=== PATIENT | female | born 1995 | race Caucasian/White ===

== ENCOUNTER 2025-02-13 16:23 | Inpatient (IN) ==
[2025-02-13] MEDS: OXYTOCIN 10 UNITS/ML VIAL ONE (16:36)
[2025-02-13] MEDS: OXYTOCIN 30 UNITS/NSS 30 UNITS/500 ML BAG IV PRN (16:45)
[2025-02-13] MEDS ORDERED: LACTATED RINGER'S 1,000 ML IV PRN (17:00)
[2025-02-13] MEDS ORDERED: LIDOCAINE 1% LOCAL 20 ML VIAL INFIL PRN (17:00)
[2025-02-13] MEDS ORDERED: OXYTOCIN 30 UNITS/NSS 30 UNITS/500 ML BAG IV PRN (17:00)
--- NOTE | 2025-02-13 17:00 | Delivery Summary ---
Vaginal Delivery Summary Date of Service February 13, 2025 Vaginal Delivery Summary and 3rd Degree LAC (partial) The patient dilated to complete and pushed to deliver a viable female Apgars 8 and 9 via over partial 3rd degree perineal laceration. Mouth and nose bulb suctioned at perineum. Body cord noted. Shoulders and body delivered with ease. Infant was vigorous and crying at . Cord clamped at 60+ seconds of life after no pulsations and to maternal abdomen where the cord was then doubly clamped and cut. Placenta delivered spontaneously and intact, three-vessel cord. Hemostasis not achieved with dilute pitocin--which wasn't infusing due to lost iv site, therefore IM pit given and uterine massage and bimanual massage given. With continued gushes 1000mcg of rectal cytotec given. Hemostasis improving and iv site obtained for dilute pitocin. Left sulcal laceration noted and right vulvar hematoma that was not expanding noted. After 1% local lidocaine anesthesia, 3-0 and 2-0 vicryl used to perform repairs. The perineum was reapproximated in layers after the anal sphincter was reinforced with 2-0 vicryl. Cervix intact. QBL 520 cc. Mother and baby stable in recovery. [facility] Vaginal Delivery Charge Delivery Type Details: and 3rd Degree LAC (partial)
[2025-02-13] MEDS ORDERED: MEASLES, MUMPS & RUBELLA VIRUS VACCINE (MMR) 0.5ML VIAL SQ ONE (17:20)
[2025-02-13] MEDS ORDERED: ACETAMINOPHEN 325 MG TAB PO PRN (17:20)
[2025-02-13] MEDS ORDERED: DIPHTHER/TETAN/PERTUS Vaccine (Tdap, Adol/Adult) 0.5mL IM ONE (17:20)
[2025-02-13] MEDS ORDERED: HYDROCORTISONE ACETATE 25 MG SUPP PR PRN (17:20)
[2025-02-13] MEDS: LIDOCAINE 1% LOCAL 20 ML VIAL ONE (17:37)
[2025-02-13] MEDS: IBUPROFEN 600 MG TAB PO PRN (18:01)
[2025-02-13] MEDS: BENZOCAINE 20% SPRY 85 APPLN/85 GM CAN EXT PRN (18:01)
[2025-02-13 18:47] LABS: Hematocrit (blood only) 36.9 % (37.0-47.0); Hemoglobin 12.8 g/dl (12.0-16.0); Mean Corpuscular Hemoglobin 31.2 pg (25.0-34.0); Mean Corpuscular Volume 90.0 fL (80.0-100.0); Platelet Count 227 K/uL (130-400); RDW Standard Deviation 43.2 fL (36.4-46.3); Red Blood Count 4.10 M/uL (4.20-5.40); White Blood Count 20.99 K/ul (4.8-10.8)
[2025-02-13] MEDS: OXYTOCIN 30 UNITS/500ML NSS IV ONE ×2 (18:54)
[2025-02-13] MEDS: OXYTOCIN 10 UNITS/ML 10ML VIAL IM ONE (18:54)
[2025-02-13] MEDS: FAMOTIDINE 20 MG TAB PO SCH (21:16)
[2025-02-13] MEDS: DOCUSATE SODIUM 100 MG CAP PO SCH (21:16)
--- NOTE | 2025-02-13 22:59 | Obstetrical Progress Note ---
Date of Service February 13, 2025 Results & Data Vital Signs (Past 12 Hours) Vital Signs Temp Pulse Pulse Resp BP BP Pulse Ox 02/13/25 20:50 36.5 C 90 18 118/65 96 02/13/25 19:00 37.1 C 80 18 120/60 02/13/25 18:45 68 20 02/13/25 18:30 68 20 138/58 L 02/13/25 18:23 75 20 02/13/25 18:15 127/55 L 02/13/25 17:53 75 20 02/13/25 17:47 75 02/13/25 17:47 122/58 L 02/13/25 17:37 75 20 122/58 L 02/13/25 17:37 77 02/13/25 17:37 115/61 02/13/25 17:27 72 02/13/25 17:27 109/55 L 02/13/25 17:22 75 18 122/58 L 02/13/25 17:17 81 02/13/25 17:17 116/64 02/13/25 17:07 75 20 122/58 L 02/13/25 17:07 79 02/13/25 17:07 117/54 L 02/13/25 16:52 75 20 122/58 L 02/13/25 16:52 80 02/13/25 16:52 106/59 L 02/13/25 16:46 78 02/13/25 16:46 108/51 L 02/13/25 16:40 36.7 C 20 02/13/25 16:38 84 132/69 02/13/25 16:25 129/65 O2 Del Method 02/13/25 20:50 Room Air 02/13/25 19:00 02/13/25 18:45 02/13/25 18:30 02/13/25 18:23 02/13/25 18:15 02/13/25 17:53 02/13/25 17:47 02/13/25 17:47 02/13/25 17:37 02/13/25 17:37 02/13/25 17:37 02/13/25 17:27 02/13/25 17:27 02/13/25 17:22 02/13/25 17:17 02/13/25 17:17 02/13/25 17:07 02/13/25 17:07 02/13/25 17:07 02/13/25 16:52 02/13/25 16:52 02/13/25 16:52 02/13/25 16:46 02/13/25 16:46 02/13/25 16:40 02/13/25 16:38 02/13/25 16:25
--- NOTE | 2025-02-14 07:27 | Obstetrical Progress Note ---
Date of Service February 14, 2025 Assessment & Plan (1) care following vaginal delivery: Plan stable routine care. breast feeding, rhpos, rubella equiv, mmr ordered. Subjective Ambulation: ambulating normally Voiding: no voiding problems Diet Tolerance:: regular diet Lochia:: Small Feeding Type:: breast feeding no concerns. feels warm Constitutional: + as per Subjective / HPI Physical Exam Constitutional WD/WN, vitals as above Respiratory normal respiratory effort, lungs clear to auscultation Cardiovascular Rate/Rhythm: regular rate and regular rhythm Gastrointestinal (Abdomen) Inspection/Auscultation: abdomen normal to inspection Percussion/Palpation: abdomen soft Fundus firm 2cm down Musculoskeletal nt calves no edema Neurologic grossly normal Psychiatric A+Ox3, euthymic affect Results & Data Vital Signs (Past 12 Hours) Vital Signs Temp Pulse Resp BP Pulse Ox O2 Del Method 02/14/25 03:45 97.5 F L 69 16 112/75 97 Room Air 02/13/25 23:55 97.5 F L 73 18 113/71 96 Room Air 02/13/25 20:50 97.7 F 90 18 118/65 96 Room Air
[2025-02-14] MEDS: PRENATAL VITAMIN 1 TAB PO SCH (09:04)
[2025-02-14] MEDS: CETIRIZINE HCL 10 MG TABLET PO SCH (09:04)
[2025-02-14 10:10] VITALS: O2SAT 99
[2025-02-14 22:00] VITALS: RESP 18
--- NOTE | 2025-02-14 22:41 | Obstetrical Progress Note ---
Date of Service <Ludy Mccormick MD - Last Filed: 02/15/25 07:06> February 14, 2025 Assessment & Plan <Ludy Mccormick MD - Last Filed: 02/15/25 07:06> (1) care following vaginal delivery: Plan -Stable routine care. Breast feeding. Rhesus negative. Rubella Immune. -Partial 3rd degree laceration surgically repaired. <Maggy Yeung MD - Last Filed: 02/15/25 07:12> (1) care following vaginal delivery: Plan -Stable routine care. Breast feeding. -Partial 3rd degree laceration surgically repaired. Subjective <Ludy Mccormick MD - Last Filed: 02/15/25 07:06> Ambulation: ambulating normally Voiding: no voiding problems and incontinence Passing Gas:: Yes Diet Tolerance:: regular diet Lochia:: Moderate Feeding Type:: breast feeding Current Pain Level(1-10): 4 Pt is a 29 year old female , at 40 wks 0 dys. She is post op 1 day after an induced labor and delivery. Pt is resting comfortably in the AM Pt further denies any symptoms of SOB, Chest Pain, NVD, and/or LE Edema or Pain. Review of Systems All systems reviewed & are unremarkable except as noted in HPI & below i. Denies fever, chills, sweats ii. Denies SOB, difficulty breathing, chest pain, palpitations, chest pressure iii. Denies breast pain. iv. Denies Dysuria v. Denies headache or changes in vision. Physical Exam <Ludy Mccormick MD - Last Filed: 02/15/25 07:06> Constitutional WD/WN, vitals as above Eyes PERRL, conjunctivae normal, anicteric sclerae ENMT external ear and nose normal, oropharynx normal Neck trachea midline, no thyromegaly Respiratory normal respiratory effort, lungs clear to auscultation Cardiovascular RRR, no murmur, no edema Gastrointestinal (Abdomen) normal bowel sounds, soft, nontender, no hepatosplenomegaly Musculoskeletal no cyanosis or clubbing, extremities motor strength 5/5 Skin no rashes, warm and dry Psychiatric A+Ox3, euthymic affect Genitourinary As per Dr. Yeung's attestation Lymphatic no cervical or axillary lymphadenopathy Results & Data <Ludy Mccormick MD - Last Filed: 02/15/25 07:06> Vital Signs (Past 12 Hours) Vital Signs Temp Pulse Resp BP O2 Del Method 02/14/25 20:45 36.4 C L 81 18 107/70 Room Air 02/14/25 13:51 36.9 C 74 16 101/70 Room Air Supervising Physician <Maggy Yeung MD - Last Filed: 02/15/25 07:12> Co-Signing Physician Notes Resident Physician Supervision Note: I interviewed and examined the patient. Discussed with Dr. Mccormick and agree with findings and plan as documented in the note. Any exceptions or clarifications are listed here: I saw this patient while the resident accompanied me. Pain well managed, fundus firm below U, no LE edema and Caitlyn's neg. Feeling well and would like to go home today. PPD#2. Usual pp follow up recommended. Documented By: Maggy Yeung MD, FACOG
[2025-02-15 07:31] VITALS: BP 113/72; PULSE 77; TEMP 97.9
== END 2025-02-15 13:45 | disposition home or self-care (01) | DRG 768 ==
LOC: OPB 16:23 → 4S1 16:27 → 4E2 20:28